=== PATIENT | male | born 1980 | race Caucasian/White ===

== ENCOUNTER 2018-05-30 12:35 | Inpatient (IN) | payer OTHER ==
[~2018-05-30] VITALS: Ht 193 cm; Wt 83.9 kg
--- NOTE | 2018-06-14 19:30 | NUR ---
INTAKE ASSESSMENT BP:120/69, HR:85, RR:16, SpO2: 97%, T:98 Pt is in stable condition and able to be admitted on the unit. Unit protocols regarding medications and vital signs every 4 hours were explained. Pt verbalized understanding. Will continue admission upon arrival on the unit.
[2018-06-14 20:00] VITALS: BP 126/86
[2018-06-14] MEDS ORDERED: HYDROXYZINE PAMOATE 25 MG CAPSULE PO PRN (20:30)
[2018-06-14] MEDS ORDERED: LOPERAMIDE HCL 2 MG CAPSULE PO PRN ×2 (20:30)
[2018-06-14] MEDS ORDERED: IBUPROFEN 600 MG TABLET PO PRN (20:30)
[2018-06-14] MEDS ORDERED: THIAMINE HCL 200 MG/2 ML VIAL IM ONE (20:30)
[2018-06-14] MEDS ORDERED: MIRALAX 17 GM POWD.PACK PO PRN (20:30)
[2018-06-14] MEDS ORDERED: DICYCLOMINE HCL 20 MG TABLET PO PRN (20:30)
[2018-06-14] MEDS ORDERED: DIAZEPAM 10 MG TABLET PO PRN ×2 (20:30)
[2018-06-14] MEDS ORDERED: MAGNESIUM HYDROXIDE 30 ML LIQUID UDC PO PRN (20:30)
[2018-06-14] MEDS ORDERED: MAG HYDROX/AL HYDROX/SIMETH 30 ML LIQUID UDC PO PRN (20:30)
[2018-06-14] MEDS ORDERED: DIAZEPAM 5 MG TABLET PO PRN (20:30)
[2018-06-14] MEDS ORDERED: ONDANSETRON 4 MG/2 ML VIAL IM PRN (20:30)
[2018-06-14] MEDS ORDERED: ONDANSETRON ODT 4 MG TAB.RAPDIS SL PRN (20:30)
[2018-06-14] MEDS ORDERED: diphenhydrAMINE 50 MG CAPSULE PO PRN (20:30)
--- NOTE | 2018-06-14 20:30 | NUR ---
ADMISSION NOTE Pt arrived ambulatory accompanied by a OENOLOGIST at 1917. Pt is a 37 year old male admitted on 06/14/18 for medically supervised withdrawal from ETOH (vodka). Pt is full code with NKA. He reports a PMHx of anxiety, depression, and HTN. Pt noted to be alert and oriented x4. Speech is clear and audible. Pt is able to answer interview questions. Pt currently complains of ETOH withdrawal symptoms of headache, sensitivity to light, anxiety, restlessness and presents with flushed face, irritability, and mild sweats. He states "My last drink was about 5 hours ago. I had a flask of vodka " Initial CIWA: 16. He denies any history of abuse. He has a PCP named located in [place], [place]. And he has a psychiatrist named Dr. Ivy Staton. He brought several home medications of Abilify 2 mg, Chlordiazepoxide 5 mg, Clonidine 0.1 mg, Fluoxetine 20 mg, Fluoxetine 40 mg, Gabapentin 300 mg, Mirtazapine 15 mg, Nicotine gum, nicotine patch, Imodium and Nyquil/Dayquil. Medications have been reconciled. He denies a history of withdrawal induced delirium, blackouts, seizures, SI and 5150. He reports a history of overdose from opiates a few years ago He states I have a history of using Heroin, Meth and Crack Cocaine but Jaimee been sober from that for a few years now. Pt reports he started using ETOH at the age of 14. He states "I guess I just wanted to try it." Pt has been in treatment 8 years ago at [facility] in [place], [place]. He has had several attempts at sobriety. He states I have tried to get sober a few times." He reports his longest sobriety from ETOH is 1 year from [id number]. The last time he was sober was 1.5 years ago. He reports he wants to get sober because, "I need to move on. My sister and her in a place crash about 1 year ago." He states "my drinking started to really become a problem two months ago He states his triggers for relapse are "I dont really know, I just do it all day" He denies any barriers for getting sober. Pt states my support system is my therapist and my family. Pt reports after detox, " I want to continues with my aftercare program" He reports using substances has affected his life because " Im unhappy living this way, I feel stuck and I know I need to change" He has a college education, lives alone in [place] and works as an insurance underwriter. He describes his current use as: 1. ETOH (vodka) 750mL daily for 2 months. Last drink: 180 mL on 06/14/18 at 1400 3. Marijuana 3-4 grams daily x 4 months. Last dose: 3 grams on 06/14/18 at 1400. Pt states I really just started smoking weed 4 months ago. Sometimes I smoke up to 10 grams a day Pt describes his withdrawal symptoms as: anxiety, restlessness, headache, tremors, chills and sweats Upon assessment, Heart rate regular. Denies chest pain or SOB. PERRLA, breathing is even and unlabored, lung sounds clear. Abdomen is soft and non-distended. Bowel sounds present in all quadrants, last BM 06/14/18. Pt reports that BM is regular. Pt's skin is warm, dry and intact. Dr. Marroquin made aware of admission. Pt is scheduled to start a 5 day Valium taper tomorrow 06/15/18. Pt oriented to room and unit. Safety measures in place. Will continue to monitor. Addendum: 06/15/18 at 1057 by DEDRICK LIVINGSTON RN Additional Substance Use History: Librium: 5 mg daily x 1 week. Patient states that his PCP prescribed Librium to help him with anxiety associated with quitting alcohol. However, per patient, he continued to drink while taking Librium until he arrived at [facility] for detox.
[2018-06-14 20:46] LABS: *AMPHETAMINE, URINE NEGATIVE (NEGATIVE); *BARBITURATE, URINE NEGATIVE (NEGATIVE); *CANNABINOID, URINE POSITIVE (NEGATIVE); *COCCAINE, URINE NEGATIVE (NEGATIVE); *OPIATE, URINE NEGATIVE (NEGATIVE); *PHENCYCLIDINE SCREEN,URINE NEGATIVE (NEGATIVE)
--- NOTE | 2018-06-14 20:52 | NUR ---
PRN Valium Patient reported having S/S of headache, anxiety, sensitivity to light, irritability, and restlessness. CIWA assessed at 16. PRN medication Valium 20 mg administered as ordered. Will monitor effectiveness.
[2018-06-14 21:00] VITALS: BP 131/86
[2018-06-14] MEDS ORDERED: CLON0.1T PO (21:33)
[2018-06-14] MEDS ORDERED: CHLO25CA22 PO (21:33)
[2018-06-14] MEDS ORDERED: FLUO-120 PO (21:33)
[2018-06-14] MEDS ORDERED: MIRT15TA7 PO (21:33)
[2018-06-14] MEDS ORDERED: FLUO40CA49 PO (21:33)
[2018-06-14] MEDS ORDERED: ARIP2TAB3 PO (21:33)
[2018-06-14] MEDS ORDERED: GABA-534 PO (21:33)
[2018-06-14] MEDS ORDERED: NICO1PAT44 TD (21:44)
[2018-06-14] MEDS ORDERED: D-ME-96 PO (21:44)
[2018-06-14] MEDS ORDERED: NICO2GUM9 BC (21:44)
[2018-06-14] MEDS ORDERED: LOPE1TAB46 PO (21:44)
--- NOTE | 2018-06-14 21:52 | NUR ---
PRN Valium Reassessment Patient reports less anxiety, less pain from headache, less irritable and appears more calm. CIWA is 10. Will continue to monitor.
[2018-06-14 23:07] LABS: BASOPHILS % (AUTO) 0.5 % (0.0-2.0); EOSINOPHILS # (AUTO) 0.1 K/uL (0.0-0.7); HEMATOCRIT 41.6 % (36.7-47.1); HEMOGLOBIN 14.6 g/dL (12.5-16.3); LYMPHOCYTES # (AUTO) 2.5 K/uL (20.0-40.0); LYMPHOCYTES % (AUTO) 35.7 % (20.5-51.5); MEAN CORPUSCULAR HEMOGLOBIN 34.4 uug (23.8-33.4); MEAN CORPUSCULAR HGB CONC 35 g/dL (32.5-36.3); MEAN CORPUSCULAR VOLUME 98.1 fL (73.0-96.2); MONOCYTES # (AUTO) 0.5 K/uL (2.0-10.0); MONOCYTES % (AUTO) 7.5 % (0.0-11.0); NEUTROPHILS # (AUTO) 3.7 K/uL (1.8-8.9); NEUTROPHILS % (AUTO) 54.3 % (38.5-71.5); PLATELET COUNT (AUTO) 298 K/uL (152-348); RED BLOOD CELL COUNT(AUTO) 4.24 MIL/uL (4.06-5.63); WHITE BLOOD COUNT (AUTO) 6.9 K/uL (3.6-10.2)
[2018-06-14 23:23] LABS: ALANINE AMINOTRANSFERASE 68 U/L (16-63); ALKALINE PHOSPHATASE 91 U/L (50-136); AMYLASE 38 U/L (25-115); ASPARTATE AMINOTRANSFERASE 37 U/L (15-37); BILIRUBIN,TOTAL 0.3 mg/dL (0.2-1.0); CARBON DIOXIDE 29 mmol/L (21-32); CHLORIDE 102 mmol/L (98-107); CREATININE 1.1 mg/dL (0.6-1.3); GLUCOSE 119 mg/dL (74-106); LIPASE 166 U/L (73-393); MAGNESIUM 1.7 mg/dL (1.8-2.4); POTASSIUM 3.7 mmol/L (3.5-5.1); TOTAL PROTEIN, SERUM 6.9 g/dL (6.4-8.2); UREA NITROGEN, BLOOD 13 mg/dL (7-18)
[2018-06-14 23:30] LABS: ETHANOL < 3 MG/DL (0-0)
[2018-06-15] VITALS: BP 108/74
--- NOTE | 2018-06-15 | NUR ---
CIWA Deferred Patient noted lying in bed with eyes closed. Respirations even and unlabored. Will continue to monitor.
[2018-06-15 00:08] LABS: THYROID STIMULATING HORMONE 3.447 mIU/mL (0.358-3.740)
--- NOTE | 2018-06-15 04:00 | NUR ---
VITALS REFUSED, CIWA DEFERRED 0400 vitals refused. CIWA deferred d/t pt lying in bed with eyes closed noted to be asleep. Breathing is even and unlabored, safety measures in place. Will continue to monitor.
--- NOTE | 2018-06-15 07:21 | NUR ---
END OF SHIFT Pt is a 37 year old male patient admitted on 06/14/18 for ETOH withdrawal. Pt remains alert and oriented x4. He was noted with headache, sensitivity to light, anxiety, restlessness and presented with flushed face, irritability, and mild sweats during the shift. At 2051 he received PRN Valium 20 mg for increased CIWA:16. He slept a total of 6 hrs, Intake: 855mL, Void: x1, BM:0, Last CIWA: 10 at 2200. Breathing is even and unlabored, safety measures in place. Endorsed to AM shift.
--- NOTE | 2018-06-15 07:25 | NUR ---
Start Of Shift Report received from material handler 2nd shift nurse. Pt is a 37 year old male patient admitted on 06/14/18 for ETOH withdrawal.. Per material handler 2nd shift nurse pt's last CIWA was 10. Pt placed on a 5 day Valium taper. Upon start of shift pt noted laying in his bed with his eyes closed resting, breathing even and unlabored. When greeted pt stated good morning, I was wounding if I can have my breakfast and then get my medication because Im starting to feel a bit shaky". Pt's room appears unorganized and messy. Pt appears disheveled. Pt appears anxious, withdrawn, sweaty and flushed. During assessment, pt is AOx4. Lung sounds clear bilaterally. Radial pulse is regular and non-bounding. Abdomen soft and non-tender. Pt's skin is warm and intact. Pt denies any pain at the moment. Encouraged pt to drink plenty of fluids to compensate for the water lost through sweat, keep hydrated and help with the detox process. Pt received PRN Valium 20mg for withdrawal symptoms, medication effective per material handler 2nd shift nurse. Pt slept a total of 6 hours last night. Bed in lowest position. Side rails up x2. Call light functioning and within reach. All needs attended and met. Will continue to monitor.
[2018-06-15 08:00] VITALS: BP 118/79
--- NOTE | 2018-06-15 08:00 | NUR ---
CIWA 12 Pt has anxiety restless legs, yawning, Emotional volatility and restlessness. Pt complains of chills runny nose and fatigue. Pt encouraged to drink more fluids to help with detox process. Will continue to monitor, support and encourage according to plan of care.
[2018-06-15] MEDS ORDERED: 5 DAY TAPER VALIUM-SERENITY PROTOCOL PO PRN (09:00)
[2018-06-15] MEDS ORDERED: TUBERCULIN,PURIF.PROT.DERIV. 5 TU/0.1 ML TEST ID ONE (09:00)
[2018-06-15] MEDS ORDERED: MAGNESIUM OXIDE 400 MG TABLET PO ONE (09:00)
[2018-06-15] MEDS ORDERED: LORAZEPAM 1 MG TABLET PO SCH (09:00)
[2018-06-15] MEDS: MULTIVITAMINS,THERAPEUTIC TABLET PO SCH (09:47)
[2018-06-15] MEDS: FOLIC ACID 1 MG TABLET PO SCH (09:47)
[2018-06-15] MEDS: THIAMINE HCL 100 MG TABLET PO SCH (09:47)
[2018-06-15] MEDS: DIAZEPAM 10 MG TABLET PO SCH ×2 (09:47→13:04)
[2018-06-15 12:00] VITALS: BP 122/82
--- NOTE | 2018-06-15 12:00 | NUR ---
CIWA 11 Pt has diaphoresis, restless legs, yawning, Emotional volatility and restlessness. Pt complains of runny nose and fatigue. Pt encouraged to drink more fluids to help with detox process. Will continue to monitor, support and encourage according to plan of care.
[2018-06-15] MEDS ORDERED: 3 DAY TAPER OF VALIUM-SERENITY PROTOCOL PO PRN (13:45)
[2018-06-15] MEDS: GABAPENTIN 300 MG CAPSULE PO SCH ×2 (14:22→17:10)
--- NOTE | 2018-06-15 14:29 | NUR ---
Therapist prompted client to attend group therapy.
[2018-06-15] MEDS ORDERED: NICOTINE 14 MG/24HR PATCH TD SCH (15:30)
[2018-06-15 16:00] VITALS: BP 122/82
[2018-06-15] MEDS: NICOTINE 21 MG/24HR PATCH TD SCH (17:10)
--- NOTE | 2018-06-15 19:16 | NUR ---
End Of Shift Report given to mold shifter nurse, Plan of care followed, Vital signs monitored closely Q4H. Withdrawals symptoms were closely monitored, medications given as schedule. Initial CIWA 12. Pt encouraged adequate PO fluid intake as tolerated to compensate for all the water lost in sweat as well as with helping speed up the detox process. Pt presented with diaphoresis, anxiety restless legs, yawning, agitation, emotional volatility and restlessness during the day. Pt received all of the scheduled medications. Pt did not receive any PRN medications during the day. Last CIWA was a 10. Pt reported that Valium has been working well at controlling the withdrawal symptoms. Pt ate all of the meals. Pt did not attend any groups or activities. Pt denies any SI/HI. All safety measures in place, bed in lowest locked position, call light within reach. All needs met and attended
--- NOTE | 2018-06-15 19:30 | NUR ---
START OF SHIFT Received 37 year old male patient admitted on 06/14/18 for ETOH withdrawal. Pt is alert and oriented x4. Pt noted with anxiety, restlessness, flushed face and complains of diarrhea. Pts 5 day Valium taper was adjusted to a 3 day Valium taper, pt tolerating well. Per endorsement, he did not receive or request PRN medications. Last CIWA:10 at 1600. Breathing is even and unlabored, safety measures in place. Will continue to monitor.
[2018-06-15] MEDS: CLONIDINE HCL 0.1 MG TABLET PO PRN (19:45)
--- NOTE | 2018-06-15 19:45 | NUR ---
PRN CLONIDINE/IMODIUM Pt noted with increased BP: 142/101, HR:76. Pt also complained of diarrhea x1. PRN Clonidine and Imodium administered as ordered. Will monitor effectiveness.
[2018-06-15 20:00] VITALS: BP 142/101
--- NOTE | 2018-06-15 20:00 | NUR ---
CIWA Pt complains of anxiety, sweats, mild headache, flushed face, and diarrhea. CIWA:9 prior to 2100 medication administration. Will continue to monitor.
[2018-06-15] MEDS: FLUOXETINE HCL 20 MG CAPSULE PO SCH (20:38)
[2018-06-15] MEDS: ARIPIPRAZOLE 2 MG TABLET PO SCH (20:38)
[2018-06-15] MEDS: MIRTAZAPINE 15 MG TABLET PO SCH (20:39)
--- NOTE | 2018-06-15 20:45 | NUR ---
PRN CLONIDINE/IMODIUM REASSESSMENT PRN clonidine effective. BP: 131/86, HR:62. PRN Imodium effective. No diarrhea reported. Will continue to monitor.
[2018-06-15 21:00] VITALS: BP 131/86
[2018-06-15] MEDS ORDERED: DIAZEPAM 10 MG TABLET PO SCH (21:00)
[2018-06-16] VITALS: BP 128/84
--- NOTE | 2018-06-16 | NUR ---
CIWA DEFERRED 0000 CIWA deferred d/t pt lying in bed with eyes closed and is noted to be asleep. Breathing is even and unlabored, safety measures in place. Will continue to monitor.
--- NOTE | 2018-06-16 04:00 | NUR ---
VITALS REFUSED, CIWA DEFERRED 0400 vitals refused. CIWA deferred d/t pt lying in bed with eyes closed and is noted to be asleep. Breathing is even and unlabored, safety measures in place. Will continue to monitor.
--- NOTE | 2018-06-16 07:07 | NUR ---
END OF SHIFT Pt is a 37 year old male patient admitted on 06/14/18 for ETOH withdrawal. Pt remains alert and oriented x4. He was noted with anxiety, restlessness, flushed face and had complaints of diarrhea. Pt continues on a 3 day Valium taper and tolerating well. At 1945 he received PRN Clonidine and Imodium. He slept a total of 6 hrs, Intake: 1095mL, Void: x2, BM:1. Last CIWA:9 at 1999. Breathing is even and unlabored, safety measures in place. Will endorse to AM shift
--- NOTE | 2018-06-16 07:15 | NUR ---
Start of Shift Pt. is a 37 y/o male admitted for the medically managed withdrawal from ETOH (Vodka). Pt. was placed on a 5 day valium taper to managed withdrawal symptoms which was later converted to a 3 day valium taper. Endorse from previous shift pt. presented with anxiety, restlessness, flushed facial face, and diarrhea . PRN Clonidine, and Imodium were given during the previous shift to manage withdrawal symptoms. Received pt. in room. Pt. in bed with eyes closed. No signs of distress noted. Safety measures in place. Will continue to monitor pt.s behavior for safety.
[2018-06-16 07:53] LABS: BILIRUBIN,TOTAL 0.8 mg/dL (0.2-1.0); MAGNESIUM 2.1 mg/dL (1.8-2.4); POTASSIUM 4.5 mmol/L (3.5-5.1); TOTAL PROTEIN, SERUM 7.1 g/dL (6.4-8.2)
[2018-06-16 08:00] VITALS: BP 136/103
--- NOTE | 2018-06-16 08:00 | NUR ---
CIWA Assessment CIWA of 8. Pt. presents with anxiety and restlessness. Will give medications as ordered. Will continue to monitor pt.'s behavior for safety.
[2018-06-16 08:06] LABS: HEPATITIS B SURFACE AG Negative (Negative)
[2018-06-16] MEDS: THIAMINE HCL 100 MG TABLET PO SCH (08:29)
[2018-06-16] MEDS: MULTIVITAMINS,THERAPEUTIC TABLET PO SCH (08:29)
[2018-06-16] MEDS: FOLIC ACID 1 MG TABLET PO SCH (08:29)
[2018-06-16] MEDS: CLONIDINE HCL 0.1 MG TABLET PO PRN ×2 (08:29→20:18)
[2018-06-16] MEDS: GABAPENTIN 300 MG CAPSULE PO SCH ×3 (08:29→16:10)
[2018-06-16] MEDS: DIAZEPAM 5 MG TABLET PO SCH ×3 (08:29→20:04)
--- NOTE | 2018-06-16 08:29 | NUR ---
PRN Medication Pt. in room complaining of increased anxiety. PRN clonidine given at this time to manage withdrawal symptoms. Will continue to monitor pt.'s behavior for safety, and medication effectiveness.
[2018-06-16] MEDS ORDERED: DIAZEPAM 10 MG TABLET PO SCH (09:00)
[2018-06-16] MEDS ORDERED: LORAZEPAM 1 MG TABLET PO SCH (09:00)
--- NOTE | 2018-06-16 09:00 | NUR ---
PRN Re-Assessment Pt. reports a decrease in anxiety. Medication effective. Will continue to monitor pt.'s behavior for safety.
--- NOTE | 2018-06-16 11:04 | NUR ---
Therapist prompted client to attend group therapy.
[2018-06-16 12:00] VITALS: BP 123/89
--- NOTE | 2018-06-16 12:00 | NUR ---
CIWA Assessment CIWA of 9. Pt. presents with anxiety and restlessness. Will give medications as ordered. Will continue to monitor pt.'s behavior for safety.
[2018-06-16] MEDS: NICOTINE 21 MG/24HR PATCH TD SCH (15:31)
[2018-06-16 16:00] VITALS: BP 131/90
--- NOTE | 2018-06-16 16:00 | NUR ---
CIWA Assessment CIWA of 9. Pt. presents with anxiety and restlessness. Pt. medication and treatment plan compliant. Will continue to monitor pt.'s behavior for safety.
--- NOTE | 2018-06-16 19:07 | NUR ---
End of shift Pt. is a 37 y/o male admitted for the medically managed withdrawal from ETOH (Vodka). Pt. was placed on a 5 day valium taper to managed withdrawal symptoms which was later converted to a 3 day valium taper. Throughout shift pt. presented with anxiety, flushed facial skin and restlessness . PRN Clonidine was given to manage withdrawal symptoms. Pt. medication complaint throughout shift. Safety measures in place. Will endorse pt.s care to oncoming shift.
--- NOTE | 2018-06-16 19:11 | NUR ---
Start of shift note Received report from day shift nurse. Pt is a 37 yo male, A+Ox4, presenting to [facility] for medically supervised ETOH withdrawal. Pt noted with anxiety, restlessness, and agitation. Pt has HX of anxiety, depression, and HTN which will be monitored during shift. Pt remains on 3 day Valium taper, tolerated well. Respirations even and unlabored. Will continue to monitor.
[2018-06-16] MEDS: MIRTAZAPINE 15 MG TABLET PO SCH (20:04)
[2018-06-16] MEDS: ARIPIPRAZOLE 2 MG TABLET PO SCH (20:05)
[2018-06-16] MEDS: FLUOXETINE HCL 20 MG CAPSULE PO SCH (20:05)
[2018-06-16 20:11] VITALS: BP 139/95
--- NOTE | 2018-06-16 20:18 | NUR ---
PRN Clonidine Pt c/o anxiety and requested for PRN Clonidine. Medication given and tolerated well. Will reassess within 1 HR. Will continue to monitor.
--- NOTE | 2018-06-16 20:20 | NUR ---
CIWA Assessment CIWA: 8. Pt noted with fine tremors, sweat on brow, anxiety, and agitation. Respirations even and unlabored. Will continue to monitor.
--- NOTE | 2018-06-16 21:18 | NUR ---
PRN Clonidine Reassessment Medication effective. Pt expresses reduction of anxiety. No s/s of ASE noted at this time. Respirations even and unlabored. will continue to monitor.
--- NOTE | 2018-06-17 00:54 | NUR ---
V/S refused and CIWA Assessment deferred for sleep. Respirations even and unlabored. Will continue to monitor.
--- NOTE | 2018-06-17 04:31 | NUR ---
V/S refused and CIWA Assessment deferred for sleep. Respirations even and unlabored. Will continue to monitor.
--- NOTE | 2018-06-17 07:00 | NUR ---
End of shift note Pt was continuously noted with restlessness, agitation, and anxiety. Pt remained in room for majority of shift except to get food from kitchen. Pt remained cooperative and compliant with all aspects of treatment. Pt was given PRN Clonidine @2017. Pt remains on 3 day Valium taper, tolerated well. Pt slept for a total of 9 HRS. Last CIWA: 8 @2010. Respirations even and unlabored. Will endorse to day shift nurse.
--- NOTE | 2018-06-17 07:30 | NUR ---
Start Of Shift Patient is a 37 yr old male who was admitted to [facility] on 06/15/18 for a medically supervised withdrawal from ETOH ( Vodka), he has been placed on a 3 day Valium taper and today is day 3. PRN Clonidine was given on PM shift , he slept for 9+ hours and last CIWA was 8. Currently he is asleep in bed, breathing even and unlabored, call light within reach. Continue to follow MD plan of care and offer support and encouragement as needed.
[2018-06-17] MEDS ORDERED: LORAZEPAM 1 MG TABLET PO SCH (09:00)
[2018-06-17] MEDS ORDERED: DIAZEPAM 5 MG TABLET PO SCH (09:00)
--- NOTE | 2018-06-17 09:00 | NUR ---
CIWA 8 Patient presents with withdrawal symptoms that include , lethargy, restlessness, increased anxiety and insomnia with difficulty staying asleep. Scheduled Valium 5mg PO given and Psychiatrist added Trazodone 100mg PO PRN QHS
[2018-06-17] MEDS ORDERED: TRAZODONE 100 MG TABLET PO PRN (09:15)
[2018-06-17] MEDS: FOLIC ACID 1 MG TABLET PO SCH (09:16)
[2018-06-17] MEDS: MULTIVITAMINS,THERAPEUTIC TABLET PO SCH (09:16)
[2018-06-17] MEDS: GABAPENTIN 300 MG CAPSULE PO SCH ×3 (09:16→17:29)
[2018-06-17] MEDS: DIAZEPAM 5 MG TABLET PO SCH ×2 (09:16→20:36)
[2018-06-17] MEDS: THIAMINE HCL 100 MG TABLET PO SCH (09:16)
[2018-06-17 09:19] VITALS: BP 143/90
--- NOTE | 2018-06-17 10:39 | NUR ---
Therapist prompted client to attend group therapy.
[2018-06-17 12:00] VITALS: BP 129/89
--- NOTE | 2018-06-17 12:00 | NUR ---
CIWA 10 Patient presents with withdrawal symptoms that include , lethargy, restlessness, increased anxiety and insomnia with difficulty staying asleep. Scheduled gabapentin 300mg PO given, no PRN medications requested or required.
[2018-06-17 16:00] VITALS: BP 132/89
--- NOTE | 2018-06-17 16:00 | NUR ---
CIWA 10 Patient presents with withdrawal symptoms that include , lethargy, restlessness and increased anxiety No PRN medications requested or required.
[2018-06-17] MEDS: NICOTINE 21 MG/24HR PATCH TD SCH (16:30)
--- NOTE | 2018-06-17 18:57 | NUR ---
End of Shift Patient is a 37 yr old male who was admitted to [facility] on 06/14/18 for a medically supervised withdrawal from ETOH ( Vodka), he has been placed on a 3 day Valium taper and today was day 3. No PRN medications were requested or required on this shift. He had a fluid intake of 3500 ML, 6 voids and 0 BM, his last CIWA was 10 @ 1600. His withdrawal symptoms present as lethargy, restlessness, insomnia and anxiety. He has attended group this afternoon and is interacting with his peers. Continue to follow MD plan of care and offer support and encouragement. Endorsed to caustic cresylate shift superintendent.
--- NOTE | 2018-06-17 19:12 | NUR ---
Start of shift note Received report from day shift nurse. Pt is a 37 yo male, A+Ox4, presenting to [facility] for medically supervised ETOH withdrawal. Pt noted with anxiety, agitation, and restlessness. Pt has HX of anxiety, depression, and HTN, which will be monitored during shift. Pt remains on 3 day Valium taper, tolerated well. Respirations even and unlabored. Will continue to monitor.
--- NOTE | 2018-06-17 20:08 | NUR ---
CIWA Assessment CIWA: 8. Pt noted with fine tremors, anxiety, and agitation. Respirations even and unlabored. Will continue to monitor.
[2018-06-17 20:23] VITALS: BP 121/90
[2018-06-17] MEDS: MIRTAZAPINE 15 MG TABLET PO SCH (20:34)
[2018-06-17] MEDS: CLONIDINE HCL 0.1 MG TABLET PO PRN (20:34)
[2018-06-17] MEDS: FLUOXETINE HCL 20 MG CAPSULE PO SCH (20:34)
[2018-06-17] MEDS: ARIPIPRAZOLE 2 MG TABLET PO SCH (20:34)
--- NOTE | 2018-06-17 20:34 | NUR ---
PRN Clonidine Pt c/o anxiety and requested for PRN Clonidine. Medication given and tolerated well. Will reassess within 1 HR. Will continue to monitor.
--- NOTE | 2018-06-17 21:30 | NUR ---
PRN Clonidine Reassessment Medication effective. Pt expresses reduction of anxiety. No s/s of ASE noted at this time. Respirations even and unlabored. will continue to monitor.
--- NOTE | 2018-06-17 21:40 | NUR ---
PRN Trazodone Pt c/o inability to sleep and requested for PRN Trazodone. Medication given and tolerated well. Will reassess within 1 HR. Will continue to monitor.
--- NOTE | 2018-06-17 22:35 | NUR ---
PRN Trazodone Reassessment Medication effective. Pt is resting well in bed. No s/s of ASE noted at this time. Respirations even and unlabored. Will continue to monitor.
--- NOTE | 2018-06-18 00:28 | NUR ---
V/S refused and CIWA Assessment deferred for sleep. Respirations even and unlabored. Will continue to monitor.
--- NOTE | 2018-06-18 04:47 | NUR ---
V/S refused and CIWA Assessment deferred for sleep. Respirations even and unlabored. Will continue to monitor.
--- NOTE | 2018-06-18 07:00 | NUR ---
End of shift note Pt was continuously noted with restlessness, anxiety, and agitation. Pt remained in room for majority of shift except to get food from kitchen and to go smoke on smoking patio. Pt remained compliant and cooperative with all aspects of treatment. Pt was given PRN Clonidine @2033 and PRN Trazodone @2139. Pt has completed 3 day Valium taper, tolerated well, and is due for discharge today. Pt slept for a total of 6 HRS. Last CIWA: 8 @2007. Respirations even and unlabored. Will endorse to day shift nurse.
--- NOTE | 2018-06-18 07:25 | NUR ---
Start Of Shift Patient is a 37 yr old male who was admitted to [facility] on 06/15/18 for a medically supervised withdrawal from ETOH ( Vodka), he has completed a 3 day Valium taper. PRN Clonidine and Trazodone was given on PM shift , he slept for 6+ hours and last CIWA was 8. Currently he is asleep in bed, breathing even and unlabored, call light within reach. Continue to follow MD plan of care and offer support and encouragement as needed.
[2018-06-18 08:30] VITALS: BP 134/88
--- NOTE | 2018-06-18 08:50 | NUR ---
CIWA 7 patient presents with restlessness, anxiety and decreased appetite NO PRN medications requested or required
[2018-06-18] MEDS: THIAMINE HCL 100 MG TABLET PO SCH (08:58)
[2018-06-18] MEDS: MULTIVITAMINS,THERAPEUTIC TABLET PO SCH (08:58)
[2018-06-18] MEDS: FOLIC ACID 1 MG TABLET PO SCH (08:58)
[2018-06-18] MEDS: GABAPENTIN 300 MG CAPSULE PO SCH (08:58)
[2018-06-18] MEDS ORDERED: DIAZEPAM 5 MG TABLET PO SCH (09:00)
[2018-06-18] MEDS ORDERED: LORAZEPAM 1 MG TABLET PO SCH (09:00)
--- NOTE | 2018-06-18 10:12 | NUR ---
Therapist prompted client to attend group therapy.
[2018-06-18 12:00] VITALS: BP 142/86
--- NOTE | 2018-06-18 13:14 | NUR ---
Discharge Note Patient signed and dated all discharge papers, all personal belongings and Prescriptions placed in bag. Patient states no SI/HI, VS stable, ID band removed and patient ambulated off the unit and was picked up in lobby by Private electric truck driver from " [employer] " for transport to home.
[2018-06-19] MEDS ORDERED: DIAZEPAM 5 MG TABLET PO SCH (09:00)
[2018-06-19] MEDS ORDERED: LORAZEPAM 1 MG TABLET PO SCH (09:00)
== END 2018-06-18 13:14 | disposition home or self-care (01) | DRG 895 ==
LOC: SRC 06-14 18:25
PROVIDERS: ADMIT Family Medicine Addiction Medicine; ATTEND Family Medicine Addiction Medicine
PROC: HZ2ZZZZ Detoxification Services for Substance Abuse Treatment (ICD-10-PCS; principal; 2018-06-14)
PROC: HZ41ZZZ Group Counseling for Substance Abuse Treatment, Behavioral (ICD-10-PCS; 2018-06-16)
PROC: HZ31ZZZ Individual Counseling for Substance Abuse Treatment, Behavioral (ICD-10-PCS; 2018-06-16)
DX: F10.230 Alcohol dependence with withdrawal, uncomplicated (principal); F33.1 Major depressive disorder, recurrent, moderate; F12.10 Cannabis abuse, uncomplicated; Y90.9 Presence of alcohol in blood, level not specified; F17.210 Nicotine dependence, cigarettes, uncomplicated; E83.42 Hypomagnesemia; R74.0 Nonspecific elevation of levels of transaminase and lactic acid dehydrogenase [LDH]; Z81.8 Family history of other mental and behavioral disorders; F41.9 Anxiety disorder, unspecified; Z79.899 Other long term (current) drug therapy
CPT/HCPCS: 36415; 70030-TC; 80307; 80346; 80349; 83690; 83735; 84443; 85025; 86592; 86705; 86803; 87340; 87806; G0480; J3411